=== PATIENT | male | born 1940 | race Caucasian/White ===

== ENCOUNTER 2017-06-30 13:50 | Outpatient (CLI) | payer OTHER | END 2017-06-30 19:19 | disposition home or self-care (01) | LOC: SMI 13:50 | DX: I63.9 Cerebral infarction, unspecified (principal); R41.82 Altered mental status, unspecified; E87.8 Other disorders of electrolyte and fluid balance, not elsewhere classified; K82.8 Other specified diseases of gallbladder | CPT/HCPCS: 70551; 74181 ==

== ENCOUNTER 2017-07-10 10:43 | Outpatient (CLI) | payer OTHER | END 2017-07-10 19:55 | disposition home or self-care (01) | LOC: SRD 10:43 | PROVIDERS: ATTEND Internal Medicine | DX: K59.00 Constipation, unspecified (principal); E87.8 Other disorders of electrolyte and fluid balance, not elsewhere classified; R41.82 Altered mental status, unspecified | CPT/HCPCS: 74270-TC ==